=== PATIENT | female | born 1960 ===

== ENCOUNTER 2018-08-30 15:46 | Inpatient (IN) | payer OTHER ==
[~2018-08-30] VITALS: Ht 177.8 cm; Wt 137.6 kg
[2018-08-30] VITALS (19 sets, daily range): BP systolic 60–143; BP diastolic 36–84
--- NOTE | 2018-08-30 15:48 | NUR ---
PT [id number] FRM HOME FOR SOBX TODAY, NITRO 2 SPRAYS GIVEN PLUMBING INSPECTOR, PT IS AAOX2, NOTED RESPIRATORY DISTRESS, HOOKED TO MONITOR, CALLED RT FOR BIPAP SET UP AT BEDSIDE, KEPT RESTED AND COMFORTABLE, WILL CONTINUE TO MONITOR.
--- NOTE | 2018-08-30 15:50 | NUR ---
SEEN AND EXAMINED BY DR. PIERCE.
--- NOTE | 2018-08-30 16:00 | NUR ---
IV LINE ESTABLISHED, LABS DRAWNED AND SENT TO LAB.
[2018-08-30 16:05] LABS: BASOPHILS % (AUTO) 0.6 % (0.0-2.0); EOSINOPHILS % (AUTO) 0.2 % (0.0-6.0); HEMATOCRIT 39 % (33-45); HEMOGLOBIN 12.2 g/dL (11.5-14.8); LYMPHOCYTES # (AUTO) 1.1 /CMM (0.8-4.8); LYMPHOCYTES % (AUTO) 16.7 % (20.0-44.0); MEAN CORPUSCULAR HGB CONC 32 g/dl (31.0-36.0); MEAN CORPUSCULAR VOLUME 79 fL (82-100); MONOCYTES # (AUTO) 0.5 /CMM (0.1-1.30); MONOCYTES % (AUTO) 7.5 % (2.0-12.0); NEUTROPHILS # (AUTO) 4.9 /CMM (1.8-8.9); PLATELET COUNT (AUTO) 236 /CMM (150-450); RED BLOOD CELL COUNT(AUTO) 4.92 MIL/uL (4.0-5.2); WHITE BLOOD COUNT (AUTO) 6.5 K/uL (4.3-11.0)
--- NOTE | 2018-08-30 16:10 | NUR ---
PT REC'D ON CPAP MASK @ 15LPM. PT SHOWS SIGNS OF RESP DISTRESS. PT PLACED ON BIPAP PER MD ORDERS. ABG TO BE TAKEN WITHIN 1 HR. ALARMS ARE SET AND AUDIBLE. BIPAPA PLUGGED INTO RED OUTLET. AMBU BAG BEDSIDE. WILL CONTINUE TO MONITOR Addendum: 08/30/18 at 1612 by MARTINEZ ESCALONA RT Amended: Links added.
[2018-08-30 16:15] LABS: CALCIUM, SERUM 8.8 mg/dL (8.5-10.1); CARBON DIOXIDE 27 mmol/L (21-32); CHLORIDE 99 mmol/L (98-107); CREATININE 1.9 mg/dL (0.6-1.3); GLUCOSE 276 mg/dL (74-106); POTASSIUM 4.3 mmol/L (3.5-5.1); SODIUM SERUM 137 mmol/L (136-145); UREA NITROGEN, BLOOD 22 mg/dL (7-18)
[2018-08-30 16:28] LABS: ALANINE AMINOTRANSFERASE 31 U/L (12-78); ALBUMIN 2.7 g/dL (3.4-5.0); ALKALINE PHOSPHATASE 60 U/L (46-116); ASPARTATE AMINOTRANSFERASE 27 U/L (15-37); B-TYPE NATRIURETIC PEPTIDE 1906 PG/ML (0-125); BILIRUBIN,DIRECT 0.5 mg/dL (0.0-0.2); BILIRUBIN,TOTAL 1.6 mg/dL (0.2-1.0); TOTAL PROTEIN, SERUM 6.5 g/dL (6.4-8.2)
[2018-08-30] MEDS ORDERED: IV NS 0.9% 1,000 ML BAG IV ONE (17:00)
[2018-08-30] MEDS ORDERED: AZITHROMYCIN 500 MG in IV D5W 250 ML IV ONE (17:00)
[2018-08-30] MEDS ORDERED: CEFTRIAXONE 1GM BAG (ER ONLY) 50 ML IV ONE (17:00)
[2018-08-30 17:01] LABS: ABG OXYGEN SATURATION 95.7 % (92.0-98.5); ABG PCO2 27.5 mmHg (35.0-45.0); ABG PH 7.533 (7.350-7.450); ABG PO2 79.3 mmHg (75.0-100.0); AaDO2 318.3 mmHg; COHb 1.1 % (0.5-1.5); MetHb 0.3 % (0.0-1.5); O2Hb 94.4 % (94.0-97.0); SITE, ABG Left Brachial
--- NOTE | 2018-08-30 17:03 | NUR ---
CALLED [facility] FOR TO REPORT FOR THIS PATIENT
[2018-08-30] MEDS ORDERED: BISO5TAB2 PO ×2 (17:09)
[2018-08-30] MEDS ORDERED: MONT10TA22 PO (17:09)
[2018-08-30] MEDS ORDERED: TORS20TA3 PO (17:09)
[2018-08-30] MEDS ORDERED: GLIP10TA11 PO (17:09)
[2018-08-30] MEDS ORDERED: NPH,100V SQ (17:09)
[2018-08-30] MEDS ORDERED: ATOR10TA PO (17:09)
[2018-08-30] MEDS ORDERED: TIOT18CA3 IH (17:09)
[2018-08-30] MEDS ORDERED: DABI150C PO (17:09)
[2018-08-30] MEDS ORDERED: ALBU2.5V38 IH (17:09)
[2018-08-30] MEDS ORDERED: METF-440 PO (17:09)
[2018-08-30] MEDS ORDERED: GABA-534 PO (17:09)
[2018-08-30] MEDS ORDERED: PRED20TA PO (17:09)
[2018-08-30] MEDS ORDERED: INSU100V27 SQ (17:09)
[2018-08-30] MEDS ORDERED: ALBU18HF2 IH (17:09)
[2018-08-30] MEDS ORDERED: GUAI600T53 PO (17:09)
[2018-08-30] MEDS ORDERED: METH2.5T PO (17:09)
[2018-08-30] MEDS ORDERED: ACID1TAB4 PO (17:09)
[2018-08-30] MEDS ORDERED: TRAM50TA2 PO (17:09)
[2018-08-30] MEDS ORDERED: SPIR100T5 PO (17:09)
[2018-08-30] MEDS ORDERED: OMEP20CA10 PO (17:09)
[2018-08-30] MEDS ORDERED: LEVO500T90 PO (17:09)
[2018-08-30] MEDS ORDERED: MAG30ORA PO (17:09)
[2018-08-30] MEDS ORDERED: FLUT1DIS5 IH (17:09)
[2018-08-30] MEDS ORDERED: HYDR-4354 PO (17:09)
--- NOTE | 2018-08-30 17:15 | NUR ---
CALLED NURSING SUP TO REQUEST ICU BED FOR THIS PT
--- NOTE | 2018-08-30 17:17 | NUR ---
CALLED [facility], DENNIS PEARCE PAGED.
[2018-08-30] MEDS ORDERED: NOREPINEPHRINE 8 MG in IV D5W 500 ML IV PRN (17:30)
--- NOTE | 2018-08-30 17:30 | NUR ---
DR. DENNIS PEARCE AT BEDSIDE FOR EVAL.
--- NOTE | 2018-08-30 18:05 | NUR ---
PICC LINE NURSE AT BEDSIDE.
[2018-08-30] MEDS ORDERED: BUMETANIDE INJ 6 MG in IV NS 0.9% 36 ML IV ONE (19:00)
[2018-08-30] MEDS ORDERED: INSULIN NPH, HUMAN ISOPHANE 100 UNIT/ML CARTRIDGE SQ SCH (19:00)
[2018-08-30] MEDS ORDERED: ONDANSETRON HCL/PF 4 MG/2 ML VIAL IVP PRN (19:00)
[2018-08-30] MEDS ORDERED: NOREPINEPHRINE 16 MG in IV D5W 500 ML IV PRN (19:00)
[2018-08-30] MEDS ORDERED: ACETAMINOPHEN 325 MG TABLET PO PRN (19:00)
[2018-08-30] MEDS ORDERED: glipiZIDE 5 MG TABLET PO SCH (19:00)
--- NOTE | 2018-08-30 20:00 | NUR ---
FIRE APPARATUS ENGINEER NOTES SPOKE TO DR FARAH REGARDING LACTIC ACID LEVEL OF 5.[address] FARAH, CHECK PROCALCITONIN LEVEL. DR FARAH ALSO NOTIFIED REGARDING BLOOD PRESSURE 64/37, WHILE ON 34 MCG OF LEVOPHED, TITRATING UP. PER DR FARAH, 2ND PRESSOR NEOSYNEPHRINE IF NEEDED. DR FARAH ALSO WITH INSTRUCTION TO NOTIFY DR WRIGHT. DR WRIGHT NOTIFIED REGARDING CURRENT STATUS OF PATIENT, NO NEW ORDERS RECEIVED AT THIS TIME. WILL CARRY OUT ALL NEW ORDERS AND CONTINUE CLOSE MONITORING
[2018-08-30] MEDS: NOREPINEPHRINE 16 MG in IV D5W 500 ML IV PRN (20:12)
[2018-08-30] MEDS: IPRATROPIUM NEB FS 0.5 MG/2.5 ML AMPUL.NEB NEB SCH ×3 (20:14→23:22)
[2018-08-30] MEDS: ALBUTEROL FS 2.5 MG/0.5 ML VIAL.NEB NEB SCH ×2 (20:15→23:21)
[2018-08-30] MEDS ORDERED: PHENYLEPHRINE 20 MG in IV D5W 250 ML IV PRN (21:30)
[2018-08-30] MEDS ORDERED: MONTELUKAST SODIUM (10MG) 10 MG TABLET PO SCH (22:00)
[2018-08-30] MEDS ORDERED: PHENYLEPHRINE 10 MG/ML VIAL ONE (23:18)
--- NOTE | 2018-08-30 23:20 | NUR ---
STAGE TECHNICIAN NOTES PATIENT WITH C/O CHEST PAIN, 9/10, SHARP, MIDSTERNAL, NONRADIATING. EKG SHOWS SINUS TACHYCARDIA. DR FARAH NOTIFIED, WITH ORDER FOR SERIES OF TROPONIN LABS, ASPIRIN 325MG PO X1, NITRO-BID 1 GM Q6H. WILL CARRY OUT ALL ORDERS AND CONTINUE TO CLOSELY MONITOR
[2018-08-30] MEDS ORDERED: PHENYLEPHRINE IV PRN (23:30)
[2018-08-30] MEDS ORDERED: D5W IV PRN (23:30)
[2018-08-31] VITALS (39 sets, daily range): BP systolic 57–141; BP diastolic 33–106
[2018-08-31] MEDS ORDERED: ASPIRIN 325 MG TABLET PO ONE
[2018-08-31] MEDS ORDERED: *INSULIN REGULAR(HUMULIN R)HUM 100 UNIT/ML VIAL SQ PRN
[2018-08-31] MEDS ORDERED: VANCOMYCIN 1.5 GM in IV NS 0.9% 500 ML IV ONE ×2
[2018-08-31] MEDS ORDERED: DEXTROSE 50%-WATER 50 ML DISP.SYRIN IV PRN
[2018-08-31] MEDS ORDERED: INSULIN REGULAR, HUMAN 100 UNIT/ML 3 ML VIAL SQ PRN
[2018-08-31] MEDS ORDERED: PIPERACILLIN /TAZOBACTAM 2.25 G VIAL IV ONE (00:06)
[2018-08-31] MEDS ORDERED: VANCOMYCIN 500 MG VIAL ONE (00:07)
[2018-08-31] MEDS ORDERED: VANCOMYCIN 1 GM VIAL ONE (00:07)
[2018-08-31 00:15] LABS: ABG BASE EXCESS -4.7 mmol/L; ABG OXYGEN SATURATION 95.4 % (92.0-98.5); ABG PCO2 27.6 mmHg (35.0-45.0); ABG PH 7.436 (7.350-7.450); ABG PO2 82.3 mmHg (75.0-100.0); AaDO2 315.1 mmHg; COHb 0.7 % (0.5-1.5); MetHb 0.4 % (0.0-1.5); O2Hb 94.4 % (94.0-97.0); SITE, ABG Right Radial
--- NOTE | 2018-08-31 00:20 | NUR ---
GUIDANCE COUNSELOR NOTES RECEIVED CALL FROM DR FARAH, WITH NEW ORDERS TO INITIATE CVP MONITORING, START VANCOMYCIN IV AND ZOSYN IV, STAT ABG. ALL ORDERS READ BACK FOR CLARIFICATION. WILL CARRY OUT ALL NEW ORDERS AND CONTINUE TO CLOSELY MONITOR
[2018-08-31] MEDS: NITROGLYCERIN PACKET 1 GM PACKET TOP SCH ×2 (00:26→05:32)
--- NOTE | 2018-08-31 00:50 | NUR ---
COLLECTIONS ANALYST NOTES CALLED DR FARAH, NOTIFIED REGARDING LAB RESULTS, TROPONIN NEGATIVE, CVP MONITORING = 13, ABG RESULTS PH 7.436, PCO2 27.6, PO2 82.3, BICARB 18.2. DR FARAH ALSO NOTIFIED REGARDING PERSISTENT CHEST PAIN, UNCHANGED FROM LAST ASSESSMENT, 02/12, SHARP, MIDSTERNAL, NONRADIATING. DR FARAH WITH ORDER FOR MORPHINE 1MG IVP Q3H PRN CHEST PAIN. ORDERS READ BACK FOR CLARIFICATION. WILL CARRY OUT NEW ORDERS AND CONTINUE TO CLOSELY MONITOR
[2018-08-31] MEDS ORDERED: PIPERACILLIN /TAZOBACTAM 2.25 G in IV D5W 50 ML IV ONE (01:00)
[2018-08-31] MEDS: MORPHINE SULFATE INJ 2 MG/ML DISP.SYRIN IV PRN ×2 (01:06→04:40)
--- NOTE | 2018-08-31 02:15 | NUR ---
CLEAN RICE GRADER AND REEL TENDER NOTES LATEST BLOOD PRESSURE 78/66, CURRENTLY AT MAX DOSE OF LEVOPHED @ 40MCG/MIN AND ON NEOSYNEPHRINE DRIP @ 260 MCG/MIN. SPOKE TO DR FARAH, WITH ORDER TO CHANGE GOAL/PARAMETERS FOR PRESSORS FROM SYSTOLIC > 90 TO MAP GREATER THAN OR EQUAL TO 65. AL SO OBTAINED ORDER FOR 3RD PRESSOR IF NEEDED, VASOPRESSIN. ALL ORDERS READ BACK FOR CLARIFICATION. WILL CONTINUE TO CLOSELY MONITOR
[2018-08-31] MEDS ORDERED: PHENYLEPHRINE IV PRN (02:30)
[2018-08-31] MEDS ORDERED: D5W IV PRN (02:30)
[2018-08-31] MEDS ORDERED: VASOPRESSIN INJ 50 UNIT in IV D5W 497.5 ML IV PRN (02:30)
[2018-08-31] MEDS ORDERED: VASOPRESSIN INJ 20 UNIT/ML VIAL ONE (02:36)
[2018-08-31] MEDS ORDERED: PHENYLEPHRINE 80 MG in IV D5W 250 ML IV PRN (03:00)
[2018-08-31] MEDS: NOREPINEPHRINE 16 MG in IV D5W 500 ML IV PRN (03:02)
[2018-08-31] MEDS: ALBUTEROL FS 2.5 MG/0.5 ML VIAL.NEB NEB SCH ×2 (03:29→07:52)
[2018-08-31] MEDS: IPRATROPIUM NEB FS 0.5 MG/2.5 ML AMPUL.NEB NEB SCH ×3 (03:29→07:52)
--- NOTE | 2018-08-31 03:57 | NUR ---
PEANUT SHELLER NOTES BP 55/37. 3RD PRESSOR VASOPRESSIN INITIATED. PATIENT DENIES CHEST PAIN, NITROBID REMOVED, SKIN CLEANSED.
[2018-08-31] MEDS ORDERED: PHENYLEPHRINE 10 MG/ML VIAL ONE (04:38)
[2018-08-31 04:58] LABS: BASOPHILS # (AUTO) 0.1 /CMM (0.0-0.2); HEMATOCRIT 43 % (33-45); HEMOGLOBIN 12.9 g/dL (11.5-14.8); LYMPHOCYTES # (AUTO) 1.2 /CMM (0.8-4.8); LYMPHOCYTES % (AUTO) 22.2 % (20.0-44.0); MEAN CORPUSCULAR HGB CONC 30 g/dl (31.0-36.0); MEAN CORPUSCULAR VOLUME 83 fL (82-100); MONOCYTES # (AUTO) 0.3 /CMM (0.1-1.30); MONOCYTES % (AUTO) 4.7 % (2.0-12.0); NEUTROPHILS % (AUTO) 72.1 % (43.0-81.0); PLATELET COUNT (AUTO) 221 /CMM (150-450); RED BLOOD CELL COUNT(AUTO) 5.16 MIL/uL (4.0-5.2); WHITE BLOOD COUNT (AUTO) 5.6 K/uL (4.3-11.0)
[2018-08-31 05:19] LABS: ALBUMIN 2.5 g/dL (3.4-5.0); BILIRUBIN,TOTAL 1.3 mg/dL (0.2-1.0); CALCIUM, SERUM 8.5 mg/dL (8.5-10.1); CREATININE 4.3 mg/dL (0.6-1.3); MAGNESIUM 1.6 mg/dL (1.8-2.4); PHOSPHORUS 6.3 mg/dL (2.5-4.9); POTASSIUM 5.4 mmol/L (3.5-5.1); TOTAL PROTEIN, SERUM 6.7 g/dL (6.4-8.2)
--- NOTE | 2018-08-31 05:33 | NUR ---
PAY STATION ATTENDANT NOTES BP 103/69. PATIENT REFUSING NITROBID 1GM, STATES "MORPHINE WORKED." WILL CONTINUE TO CLOSELY MONITOR
[2018-08-31 05:51] LABS: THYROID STIMULATING HORMONE 1.831 uIU/mL (0.358-3.74)
[2018-08-31] MEDS ORDERED: INSULIN REGULAR, HUMAN 100 UNIT in IV NS 0.9% 99 ML IV PRN ×2 (06:00)
--- NOTE | 2018-08-31 06:00 | NUR ---
RING CUTTER LATHE OPERATOR NOTES BLOOD SUGAR = 525. CALLED AND SPOKE TO DR FARAH, REMINDING THAT PATIENT IS CURRENTLY ON MAX DOSE OF 3 PRESSORS; LEVOPHED, NEOSYNEPHRINE, AND VASOPRESSIN. MD WITH ORDER TO START IV FLUIDS NS @ 80ML/HR, AND TO START INSULIN DRIP, USING PARAMETERS: BLOOD SUGAR X2 DIVIDED BY 100 = UNITS/ HR. ORDERS READ BACK FOR CLARIFICATION. WILL CARRY OUT ALL NEW ORDERS AND CONTINUE TO CLOSELY MONITORING
--- NOTE | 2018-08-31 06:20 | NUR ---
WAX ROOM SUPERVISOR NOTES AWAITING INSULIN DRIP PER PHARMACY, NURSING PREPARED FOODS SERVICE TEAM MEMBER AWARE
[2018-08-31] MEDS ORDERED: IV NS 0.9% 1,000 ML IV PRN ×2 (06:30)
[2018-08-31] MEDS ORDERED: HYDROCORTISONE SOD SUCCINATE 100 MG/2 ML VIAL IV SCH (07:00)
[2018-08-31] MEDS ORDERED: BLOOD SUGAR DIAGNOSTIC 1 EACH STRIP IN SCH (07:00)
--- NOTE | 2018-08-31 07:00 | NUR ---
BENEFITS ASSISTANT NOTES BEDSIDE REPORT GIVEN TO NURSE SALGADO FOR CONTINUITY OF CARE. PATIENT CONTINUES ON MAX DOSE OF 3 PRESSORS, TO BE STARTED ON INSULIN DRIP. CONTINUES ON BIPAP. PATIENT'S DAUGHTER NOTIFIED REGARDING LATEST ORDERS AND PLAN OF CARE, REQUESTING TO BE PRESENT DURING AM ROUND. AM NURSE MADE AWARE. CALLED PHARMACY, SPOKE TO DENNIS REGARDING INSULIN DRIP ORDERS AND NEW MED ORDERS TO BE VERIFIED AND STARTED. PER DENNIS, HE WILL TAKE CARE OF IT. PHARMACY ALSO MADE AWARE THAT PATIENT TAKES METHOTREXATE EVERY MONDAY.
[2018-08-31] MEDS ORDERED: BLOOD SUGAR DIAGNOSTIC 1 EACH STRIP VI SCH (07:30)
--- NOTE | 2018-08-31 07:32 | NUR ---
WOUND CARE CONSULT: PT UNSTABLE FOR SKIN ASSESSMENT AT THIS TIME. PT ON BIPAP. REVIEWED ADMISSION PHOTOS. RECOMMENDATIONS MADE FOR SKIN PROTECTION AND DISCUSSED WITH NURSING STAFF. CURRENT JESSICA 13. WILL SEE PRN. GRIMES IN AGREEMENT WITH PLAN OF CARE.
--- NOTE | 2018-08-31 07:35 | NUR ---
REMEDY DEVELOPER: pt.can open eyes, short eyes contact, confused, Ox1, arms/legs activity present, unable to follow commands, cooperative, no grimacing, no c/o pain, on Bipap 18/5, 60% FiO2, RR 30-35, reapplied [id number], O2sat. 92-94% now, om max doses of Levophed (40mcg/m), Jaden(300mcg/m), Vasopressin (0.04u/h) gtts, BS 555/called pharmacy to get insulin bag got gtt bag, will start NS 1L bolus f/u MD 6.30 order, ST, urine out low over night 250ml, last pH 7.53
[2018-08-31] MEDS ORDERED: Z GUARD REMEDY 2 OZ OINT TP PRN (08:00)
[2018-08-31] MEDS ORDERED: FEE PK DOSING 1 MIN EA MC ONE ×2 (08:01→08:02)
--- NOTE | 2018-08-31 08:05 | NUR ---
ONION TIER: hard to get BP, applied 3 BP cuffs, SBP monitoring 73-141, last BP 141/80, bolus is running, O-ed and monitoring CVP: 12-14 now
--- NOTE | 2018-08-31 08:15 | NUR ---
BILINGUAL BRANCH MANAGER: , were updated before by Aldair, night RN, Insulin gtt started, bolus NS 1L is running, ST 100-115, O2sat. 92-98% on new sensor, pt.is still with tachypnea, last BS 497, pt.daughter is in room, updated with pt.current VS, O2sat., BS, serious condition/pt.is on 3 vascular pressors max doses, low urine out, Bipap support, insulin gtt, POC, MDs visits, pt.is reactive to daughter with weak activity, eyes contact. RT is in room to get ABG
--- NOTE | 2018-08-31 08:18 | NUR ---
AGRONOMY SPECIALIST: BP 70/33 now, pt.is reactive by touch
--- NOTE | 2018-08-31 08:32 | NUR ---
EDUCATION COORDINATOR: NS 1L bolus given, BP 78/32 now, on max doses of 3 pressors gtts, pt.is reactive by touch, eyes contact+, but very weak
--- NOTE | 2018-08-31 08:42 | NUR ---
TOBACCO SWEEPER: pt.became bradycardic fast and asystolic, code blue initiated, started CPR, is in room to manage team/updated shortly with pt.history/3 pressors
[2018-08-31] MEDS ORDERED: BISOPROLOL FUMARATE 5 MG TABLET PO SCH (09:00)
[2018-08-31] MEDS ORDERED: FLUTICASONE/VILANTEROL 1 EACH BLST.W.DEV IH SCH (09:00)
[2018-08-31] MEDS ORDERED: DABIGATRAN ETEXILATE MESYLATE 150 MG CAPSULE PO SCH (09:00)
[2018-08-31] MEDS ORDERED: PIPERACILLIN /TAZOBACTAM 2.25 G in IV D5W 50 ML IV SCH (09:00)
[2018-08-31] MEDS ORDERED: Z GUARD REMEDY 2 OZ OINT TP SCH (09:00)
[2018-08-31] MEDS ORDERED: SPIRONOLACTONE 25 MG TABLET PO SCH (09:00)
[2018-08-31] MEDS ORDERED: ATORVASTATIN 10 MG TABLET PO SCH (09:00)
[2018-08-31] MEDS ORDERED: GABAPENTIN 300 MG CAPSULE PO SCH (09:00)
--- NOTE | 2018-08-31 09:07 | NUR ---
CARE TRAINER: continue ACLS/CPR measures, is in room/intubated pt.
--- NOTE | 2018-08-31 09:11 | NUR ---
TEA TASTER: pt.is still asystolic, ACLS/CPR stopped with pronounced
--- NOTE | 2018-08-31 09:26 | NUR ---
RT NOTE PT NOTED TO BE LETHARGIC WHILE ATTEMPTING TO OBTAIN ABG. DAUGHTER AT BED SIDE. ATTEMPTED TO COMMUNICATE WITH PT. PT NOTED TO BE UN RESPONSIVE. NOTIFIED NAOMI MENDES. VIJAY WESLEY CALLED. CPR INITIATED PER PROTOCOL. PT INTUBATED PER 6.0 ETT AT 23 CM AT LIP BY MD FELTON. POSITIVE C02 COLOR CHANGE NOTED. CPR CONTINUED UNTIL VIJAY WESLEY CALLED/STOPPED PER MD BROWN. Addendum: 08/31/18 at 0936 by GILBERT ALBARRAN RT Amended: Links added.
[2018-08-31] MEDS ORDERED: EPINEPHRINE (1:10,000) SYRINGE 1 MG/10 ML DISP.SYRIN IVP ONE (09:45)
[2018-08-31] MEDS ORDERED: ATROPINE SULFATE 1 MG/10 ML DISP.SYRIN IV ONE (09:45)
--- NOTE | 2018-08-31 10:00 | NUR ---
AUTOMOTIVE ELECTRICAL HELPER: [employer] notified/got #, see chart, Tattooer office is notified by charge nurse,
--- NOTE | 2018-08-31 10:15 | NUR ---
SUPERVISOR COUNSELING AND GUIDANCE: Financial Planner office confirmed: relive body to family, not Financial Planner case, able to remove all invasive lines
--- NOTE | 2018-08-31 11:30 | NUR ---
FIELD SERVICE CONSULTANT: pt.is still in ICU until 06.03 by family request for lot of members to see pt. last time
--- NOTE | 2018-08-31 12:45 | NUR ---
PROJECT DESIGNER: pt.body is transferred to [facility]
[2018-09-01] MEDS ORDERED: VANCOMYCIN 1.25 GM in IV D5W 500 ML IV SCH (12:00)
[2018-09-04] MEDS ORDERED: METHOTREXATE SODIUM (2.5MG) 2.5 MG TABLET PO SCH (09:00)
== END 2018-08-31 13:00 | disposition expired | DRG 291 ==
LOC: ER 15:48 → ICU 18:37
PROVIDERS: ADMIT Nurse Practitioner Acute Care; ATTEND Family Medicine
PROC: B548ZZA Ultrasonography of Superior Vena Cava, Guidance (ICD-10-PCS; principal; 2018-08-30)
PROC: 5A09357 Assistance with Respiratory Ventilation, Less than 24 Consecutive Hours, Continuous Positive Airway Pressure (ICD-10-PCS; principal; 2018-08-30)
PROC: 02HV33Z Insertion of Infusion Device into Superior Vena Cava, Percutaneous Approach (ICD-10-PCS; principal; 2018-08-30)
PROC: 0BH18EZ Insertion of Endotracheal Airway into Trachea, Via Natural or Artificial Opening Endoscopic (ICD-10-PCS; 2018-08-31)
PROC: 5A12012 Performance of Cardiac Output, Single, Manual (ICD-10-PCS; 2018-08-31)
DX: I13.0 Hypertensive heart and chronic kidney disease with heart failure and stage 1 through stage 4 chronic kidney disease, or unspecified chronic kidney disease (principal); J96.01 Acute respiratory failure with hypoxia; N17.0 Acute kidney failure with tubular necrosis; I50.31 Acute diastolic (congestive) heart failure; E87.2 Acidosis; D68.59 Other primary thrombophilia; Z68.41 Body mass index [BMI] 40.0-44.9, adult; E11.22 Type 2 diabetes mellitus with diabetic chronic kidney disease; E11.65 Type 2 diabetes mellitus with hyperglycemia; N18.9 Chronic kidney disease, unspecified; E66.01 Morbid (severe) obesity due to excess calories; E87.5 Hyperkalemia; I48.91 Unspecified atrial fibrillation; Z79.4 Long term (current) use of insulin; I95.9 Hypotension, unspecified; G47.33 Obstructive sleep apnea (adult) (pediatric); J44.9 Chronic obstructive pulmonary disease, unspecified
CPT/HCPCS: 36415; 36600; 71045-TC; 80048-TC; 80053-TC; 80061-TC; 80076-TC; 82803-TC; 82962-TC; 83605-TC; 83735-TC; 83880; 84100-TC; 84443-TC; 84484-TC; 85025-TC; 85730-TC; 87040-TC; 87081-TC; 92950-TC; 93307-TC; 99082-TC; A4216; C1751; G0378; J0171; J0456; J0461; J0696; J1720; J1815; J2270; J2370; J2543; J3370; J3490; J7030; J7040; J7050; J7060